=== PATIENT | male | born 1985 | race Two or more races ===

== ENCOUNTER → 2024-04-22 | Outpatient (CLI) | payer OTHER, MEDICAID, SELFPAY ==
--- NOTE | 2024-04-22 13:17 | XR_ITS ---
Examination: PA lateral chest 2 views TECHNIQUE: Upright PA lateral chest 2 views Exam date and time: April 22, 2024 1325 hours INDICATIONS: Coughing shortness of breath beginning one month ago. FINDINGS: Extensive left lung pneumonia, prominent left apex Normal heart size Mild osteopenia IMPRESSION: Extensive left lung pneumonia, follow-up chest imaging strongly recommended to document clearing and exclude pulmonary mass left upper lobe
== END | disposition home or self-care (01) ==
LOC: CDIM 12:36
PROVIDERS: PCP Physician Assistant; Referring Provider Physician Assistant; Visit Provider Physician Assistant
DX: J18.9 Pneumonia, unspecified organism (principal); R05.3 Chronic cough
CPT/HCPCS: 71046

== ENCOUNTER → 2024-06-21 | Outpatient (CLI) | payer OTHER, MEDICAID, SELFPAY ==
--- NOTE | 2024-06-21 09:16 | XR_ITS ---
Examination: PA lateral chest 2 views TECHNIQUE: Upright PA lateral chest 2 views Exam date and time: June 21, 2024 0923 hours Comparison April 22, 2024 INDICATIONS: Probably fever diagnosis, coccidioidomycosis, with coughing beginning 6 weeks ago. FINDINGS: Extensive dense pneumonic consolidation left upper lobe No significant cardiac enlargement Right lung clear IMPRESSION: Dense pneumonic consolidation remains left upper lobe, follow-up is needed
== END | disposition home or self-care (01) ==
LOC: CDIM 09:10
PROVIDERS: PCP Physician Assistant; Referring Provider Physician Assistant; Visit Provider Physician Assistant
DX: J18.9 Pneumonia, unspecified organism (principal)
CPT/HCPCS: 71046

== ENCOUNTER → 2024-11-08 | Outpatient (CLI) | payer OTHER, MEDICAID, SELFPAY ==
--- NOTE | 2024-11-08 10:01 | XR_ITS ---
Examination: PA lateral chest 2 views TECHNIQUE: Upright PA lateral chest 2 views Date and time: November 08, 2024 1031 hours, comparison June 21, 2024 INDICATIONS: History coccidiomycosis 5 months ago. FINDINGS: No improvement in extensive parenchymal disease in the left upper lobe Right lung clear Minimal prominence left ventricle IMPRESSION: No improvement in significant parenchymal disease left upper lobe
== END | disposition home or self-care (01) ==
PROVIDERS: PCP Physician Assistant; Referring Provider Physician Assistant; Visit Provider Physician Assistant
DX: B38.2 Pulmonary coccidioidomycosis, unspecified (principal); R05.3 Chronic cough
CPT/HCPCS: 71046